=== PATIENT | male | born 1970 | race Caucasian/White ===

== ENCOUNTER → 2016-08-16 | Outpatient (CLI) | payer OTHER | END | disposition home or self-care (01) | LOC: C.LAB1850 09:55 | PROVIDERS: ATTEND Nurse Practitioner Adult Health | DX: N41.0 Acute prostatitis (principal) ==

== ENCOUNTER → 2016-11-14 | Outpatient (CLI) | payer OTHER ==
[2016-11-14 12:36] LABS: BLOOD UREA NITROGEN 10 mg/dl (7-18); BUN/CREATININE RATIO 8.4 (10-20); CALCIUM 9.2 mg/dl (8.5-10.1); CARBON DIOXIDE 25 mmol/L (21-32); CHLORIDE 106 mmol/L (98-107); GLUCOSE 83 mg/dl (70-99); POTASSIUM 4.1 mmol/L (3.5-5.1); SODIUM 139 mmol/L (136-145)
[2016-11-15 17:09] LABS: ALBUMIN 4.7 G/DL (3.8-4.8); GAMMA GLOBULIN 0.8 G/DL (0.8-1.7); TOTAL PROTEIN 7.3 G/DL (6.2-8.3)
== END | disposition home or self-care (01) ==
LOC: C.LABPVFM 10:09
PROVIDERS: ATTEND Nurse Practitioner Family
DX: R80.9 Proteinuria, unspecified (principal)

== ENCOUNTER → 2016-12-31 | Day surgery (SDC) | payer OTHER ==
[2016-12-19 07:38] VITALS: Ht 182.9 cm; Wt 86.4 kg
[~2016-12-31] VITALS: Ht 182.9 cm; Wt 86.4 kg
[~2016-12-31] MED LIST: ATV/1 PO; BUPRTAB51 PO; LIDOCAINE HCL 2% 2 ML VIAL (20MG/ML) ONE; PROPOFOL IV EMULSION 10 MG/ML 20 ML VIAL IV ONE; SODIUM CHLORIDE 0.9% 500ML 500 ML IV ONE
[2016-12-31 14:36] VITALS: TEMP 36.8
--- NOTE | 2016-12-31 15:26 | Endo History and Physical ---
History & Physical Date of Service: Dec 31, 2016. Chief Complaint: FAMILY HX OF COLON CA Referring Physician: DR. GARSIA History of Present Illness 46 yo CM who presents for colonoscopy secondary to family history of colon cancer. Past Surgical History Hx Cardiac Surgery: No Hx Internal Defibrillator: No Hx Pacemaker: No Hx of Implantable Prosthesis: No Hx Post-Op Nausea and Vomiting: No Hx Cancer Surgery: No Hx Thoracic Surgery: No Hx Orthopedic: No Hx Urinary Tract Surgery: Yes (VASECTOMY) Family History Colon CA Social History Smoking Status: Former Smoker Hx Substance Use: No Hx Alcohol Use: Yes (OCCASIONALLY) Allergies Coded Allergies: NO KNOWN DRUG ALLERGIES (Verified Allergy, Unknown, ., 12/19/16) Current Medications Reported Home Medications Medications Dose Route/Sig Max Daily Dose Days Date Category Ativan (Lorazepam) 1 Mg Tab 1 Mg PO DAILY PRN 12/19/16 Reported Wellbutrin-Xl (Bupropion HCl) 300 Mg Tabcr 300 Mg PO HS 12/19/16 Reported Vital Signs Weight (Kilograms): 86.36 Height (Feet): 6 Height (Inches): 0 Date Time Temp Pulse Resp B/P (MAP) Pulse Ox O2 Delivery O2 Flow Rate FiO2 12/31/16 14:36 36.8 82 20 143/91 (108) 97 Room Air Physical Exam General Appearance: WD/WN, no apparent distress Respiratory/Chest: Auscultation: breath sounds normal Cardiovascular: Heart Auscultation: RRR Abdomen: Bowel Sounds: normal Inspection & Palpation: soft, non-distended, no tenderness, guarding & rebound Assessment and Plan Assessment: 46 yo CM who presents for colonoscopy secondary to family history of colon cancer. Plan: Proceed with colonoscopy.
--- NOTE | 2016-12-31 16:23 | Discharge Instructions ---
Endoscopy Patient Instructions Date / Procedure(s) Performed Dec 31, 2016. Colonoscopy Allergy Information Coded Allergies: NO KNOWN DRUG ALLERGIES (Verified Allergy, Unknown, ., 12/19/16) Discharge Date / Findings Dec 31, 2016. Colon polyps Internal hemorrhoids Medication Instructions OK to resume all medications today as prescribed Reported Home Medications Medications Dose Route/Sig Max Daily Dose Days Date Category Ativan (Lorazepam) 1 Mg Tab 1 Mg PO DAILY PRN 12/19/16 Reported Wellbutrin-Xl (Bupropion HCl) 300 Mg Tabcr 300 Mg PO HS 12/19/16 Reported Provider Instructions Activity Restrictions - No exercising or heavy lifting for 24 hours. - Do not drink alcohol the day of the procedure. - Do not drive a car or operate machinery until the day after the procedure. - Do not make any important decisions or sign important papers in 24 hours after the procedure. Following Day: - Return to full activity which may include returning to work/school. Diet Start your diet with liquids and light foods (jello, soup, juice, toast). Then eat your usual diet if not nauseated. Treatment For Common After Affects For mild abdominal pain, bloating, or excessive gas: - Rest - Eat lightly - Lie on right side Follow-Up Information Follow-up with DR. GASRIA as scheduled Anesthesia Information What You Should Know You have had a procedure that required some medicine to reduce anxiety and discomfort. This treatment is called moderate sedation. After receiving the treatment, you may be sleepy, but you will be able to breathe on your own. The effects of the treatment may last for several hours. Follow these instructions along with Activity/Diet recommendations noted above: * Do NOT do anything where dizziness or clumsiness would be dangerous. * Rest quietly at home today, then you can be up and about tomorrow. * Have a responsible person stay with you the rest of today. * You may have had an I.V. today. If so, you may take the dressing off later today. Recommendations Call your doctor if: * Trouble breathing * Continuous vomiting for more than 24 hours * Temperature above 101 degrees * Severe abdominal pain or bloating * Pain not relieved by pain medicine ordered * There is increased drainage or redness from any incision * A large amount of rectal bleeding greater than 2-3 tablespoons. (If you had a polyp/s removed or have hemorrhoids, a small amount of blood - from the rectum is to be expected.) * You have any unanswered questions or concerns. IN THE EVENT OF A SERIOUS EMERGENCY, GO TO THE NEAREST EMERGENCY ROOM Your discharge instructions were prepared by provider Mike Telles. Patient Instructions Signature Page Trevin Menezes Patient (or Guardian) Signature/Date: I have read and understand the instructions given to me by my caregivers. Caregiver/RN/Doctor Signature/Date: The above-named patient and/or guardian has received patient instructions on this date. + Original Patient Signature Page (only) stays with chart. Please make copy for patient.
--- NOTE | 2016-12-31 16:25 | GI REPORT ---
Procedure Date: 12/31/2016 3:47 PM Procedure: Colonoscopy Indications: Family history of colon cancer Medicines: Monitored Anesthesia Care Complications: No immediate complications. Estimated Blood Loss: Estimated blood loss: none. Procedure: Pre-Anesthesia Assessment: - Prior to the procedure, a History and Physical was performed, and patient medications and allergies were reviewed. The patient's tolerance of previous anesthesia was also reviewed. The risks and benefits of the procedure and the sedation options and risks were discussed with the patient. All questions were answered, and informed consent was obtained. Prior Anticoagulants: The patient has taken no previous anticoagulant or antiplatelet agents. ASA Grade Assessment: II - A patient with mild systemic disease. After reviewing the risks and benefits, the patient was deemed in satisfactory condition to undergo the procedure. After I obtained informed consent, the scope was passed under direct vision. Throughout the procedure, the patient's blood pressure, pulse, and oxygen saturations were monitored continuously. The scope was introduced through the anus and advanced to the terminal ileum. The colonoscopy was performed without difficulty. The patient tolerated the procedure well. The quality of the bowel preparation was good. The ileocecal valve, appendiceal orifice, and rectum were photographed. Findings: Three sessile polyps were found in the ascending colon. The polyps were 5 to 8 mm in size. These polyps were removed with a hot snare. Resection and retrieval were complete. Multiple small-mouthed diverticula were found in the sigmoid colon. Non-bleeding internal hemorrhoids were found during retroflexion. The hemorrhoids were small. Impression: - Three 5 to 8 mm polyps in the ascending colon, removed with a hot snare. Resected and retrieved. - Diverticulosis in the sigmoid colon. - Non-bleeding internal hemorrhoids. Recommendation: - Resume previous diet. - Continue present medications. - Repeat colonoscopy for surveillance based on pathology results. - Return to primary care physician as previously scheduled. Mike Telles DO 12/31/2016 4:24:59 PM This report has been signed electronically. Note Initiated On: 12/31/2016 3:47 PM I attest to the content of the Intraoperative Record and orders documented therein, exceptions below
[2016-12-31 16:53] VITALS: BP 112/81; O2SAT 99
--- NOTE | 2016-12-31 17:01 | Anesthesiology Progress Note ---
Anesthesia Post Op Note Date & Time Dec 31, 2016 at 17:01 Vital Signs Pain Intensity: 0 Vital Signs Past 12 Hours Date Time Temp Pulse Resp B/P (MAP) Pulse Ox O2 Delivery O2 Flow Rate FiO2 12/31/16 16:53 20 112/81 (91) 99 Room Air 12/31/16 16:38 70 20 112/72 (85) 98 Room Air 12/31/16 16:22 86 20 104/66 (79) 97 Room Air 12/31/16 14:36 36.8 82 20 143/91 (108) 97 Room Air Notes Mental Status: alert / awake / arousable, participated in evaluation Pt Amnestic to Procedure: Yes Nausea / Vomiting: adequately controlled Pain: adequately controlled Airway Patency, RR, SpO2: stable & adequate BP & HR: stable & adequate Hydration State: stable & adequate Anesthetic Complications: no major complications apparent
== END | disposition home or self-care (01) ==
LOC: C.GI 13:59
PROVIDERS: ATTEND Internal Medicine
DX: Z12.11 Encounter for screening for malignant neoplasm of colon (principal); Z80.0 Family history of malignant neoplasm of digestive organs; D12.2 Benign neoplasm of ascending colon; K57.30 Diverticulosis of large intestine without perforation or abscess without bleeding; K64.8 Other hemorrhoids; F41.9 Anxiety disorder, unspecified; F32.9 Major depressive disorder, single episode, unspecified; Z98.52 Vasectomy status; Z87.891 Personal history of nicotine dependence; Z79.899 Other long term (current) drug therapy